=== PATIENT | female | born 1960 | race Caucasian/White ===

== ENCOUNTER 2021-01-01 10:06 | Outpatient (CLI) | payer OTHER, MEDICARE | END 2021-01-01 10:07 | disposition home or self-care (01) | LOC: CSHMRI 10:06 | PROVIDERS: ATTEND Psychiatry & Neurology Neurology | DX: I61.0 Nontraumatic intracerebral hemorrhage in hemisphere, subcortical (principal); R27.0 Ataxia, unspecified; Z86.73 Personal history of transient ischemic attack (TIA), and cerebral infarction without residual deficits; Z98.890 Other specified postprocedural states; M47.812 Spondylosis without myelopathy or radiculopathy, cervical region | CPT/HCPCS: 70553; 72141 ==

== ENCOUNTER 2023-02-19 08:08 | Outpatient (CLI) | payer MEDICARE, OTHER | END 2023-02-19 08:09 | disposition home or self-care (01) | LOC: CSHRAD 08:08 | PROVIDERS: ATTEND Family Medicine | DX: M25.562 Pain in left knee (principal); M17.12 Unilateral primary osteoarthritis, left knee ==